=== PATIENT | female | born 1970 | race Hispanic/Latino ===

== ENCOUNTER 2016-12-15 09:19 | Outpatient (CLI) | payer MEDICARE ==
[2016-12-15 10:40] LABS: Blood Urea Nitrogen 25 mg/dL (7-17)
[2016-12-15] MEDS ORDERED: NACL ONE ×2 (10:44→12:32)
--- NOTE | 2016-12-15 14:55 | Cat Scan Report ---
CTA right lower extremity Recent trauma and known fracture for evaluation of vascular involvement. Following IV contrast administration transverse images are obtained from the lower third of the femur to the proximal two thirds of the tibia. Coronal and sagittal 2-D reformatted images included. There is a superiorly displaced avulsed bone fragment from the sub-plateau region of the posterior tibia. The joint is otherwise unremarkable and well aligned. There is a small suprapatellar effusion. There is a focal endosteal area of cortical thickening in the posterior distal femur just above the medial condyle. No other significant bone or soft tissue changes. The distal SFA and popliteal arteries are intact. There is a normal common peroneal and trifurcation region with 3 vessel runoff to the distal leg. Impressions: Avulsion fracture of posterior proximal tibia. No arterial vascular injury identified.
== END 2016-12-15 09:20 | disposition home or self-care (01) ==
LOC: CT 09:19
PROVIDERS: ATTEND Orthopaedic Surgery
DX: S82.101A Unspecified fracture of upper end of right tibia, initial encounter for closed fracture (principal); S83.104A Unspecified dislocation of right knee, initial encounter; X58.XXXA Exposure to other specified factors, initial encounter; Y93.89 Activity, other specified; Y92.89 Other specified places as the place of occurrence of the external cause; Y99.8 Other external cause status
CPT/HCPCS: 36415; 73706; 82565; 84520; Q9967

== ENCOUNTER 2017-07-08 16:36 | Inpatient (IN) | payer MEDICARE ==
--- NOTE | 2017-07-08 17:13 | Emergency Department Report ---
HPI - General Chief Complaint: Dyspnea/Respdistress Time Seen by Provider: 07/08/17 17:03 - HPI HPI: 47-year-old female who presents to the emergency department with complaint of a two-week history of shortness of breath. When this first began, the patient went to [facility] and was diagnosed with pneumonia. She was given a dose of Levaquin in the hospital, was not admitted, and then was sent home with a prescription of antibiotics which she has now finished. At the time, with the results now at bedside, she had a CT angiography of the chest that ruled out a pulmonary embolism and showed the ground glass opacities throughout the lung cantu. The patient has a past medical history of asthma, RA, and borderline diabetes. She went to see her printing supplies sales representative, Dr. Hoyos, today and had a 6 minute walking test and was found to have her oxygen go down into the 70s. She was given supplemental oxygen and improved. Therefore she has this exertional shortness of breath or worsening. It is also associated with a mixed dry and productive cough. One thing that is new is lower extremity swelling. She complains of this going on for the past week. No recent travel or sick contacts at home. She has a primary care physician up at [facility]. She denies any tobacco or illicit drug use or abuse. She has been using nebulized breathing treatments with only some transient relief. ED Past Medical Hx - Past Medical History Previous Medical History?: Yes Hx Diabetes: Yes (borderline) Hx Arthritis: Yes Hx Asthma: Yes (RA) - Surgical History Past Surgical History?: Yes Additional Surgical History: ACL and meniscus repair 05/21/2017. parital hysterectomy - Social History Smoking Status: Never Smoker Substance Use Type: None - Medications Home Medications: Home Medications Medication Instructions Recorded Confirmed Last Taken Type Acetaminophen [Tylenol Extra 500 mg PO DAILY 07/08/17 07/08/17 07/08/17 History Strength] Escitalopram Oxalate [Lexapro] 20 mg PO DAILY 07/08/17 07/08/17 Unknown History Ibuprofen [Motrin] 600 mg PO DAILY PRN 07/08/17 07/08/17 Unknown History Oxycodone HCl/Acetaminophen 1 each PO TID PRN 07/08/17 07/08/17 Unknown History [Percocet 10/325 mg] Pregabalin [Lyrica] 225 mg PO BID 07/08/17 07/08/17 07/08/17 History Trazodone HCl 100 mg PO QHS 07/08/17 07/08/17 07/07/17 History Zolpidem [Ambien] 5 mg PO QHS PRN 07/08/17 07/08/17 07/07/17 History ED Review of Systems ROS: Stated complaint: Short of breath Other details as noted in HPI Comment: All other systems reviewed and negative Constitutional: denies: chills, fever Eyes: denies: eye pain, eye discharge, vision change Respiratory: cough, shortness of breath, SOB with exertion, wheezing Cardiovascular: chest pain (chest pressure), edema Gastrointestinal: denies: abdominal pain, nausea, diarrhea Genitourinary: denies: urgency, dysuria, discharge Musculoskeletal: denies: back pain, joint swelling, arthralgia Skin: denies: rash, lesions Neurological: denies: headache, weakness, paresthesias Physical Exam - Physical Exam Vital Signs: Vital Signs 07/08/17 16:54 Temperature 98.4 F Pulse Rate 92 H Respiratory 20 Rate Blood Pressure 144/83 O2 Sat by Pulse 96 Oximetry Physical Exam: GENERAL: The patient is well-developed well-nourished. HENT: Normocephalic. Atraumatic. Patient has moist mucous membranes. EYES: Extraocular motions are intact. Pupils equal reactive to light bilaterally. NECK: Supple. Trachea is midline. CHEST/LUNGS: Coarse breath sounds. There is some tachypnea and accessory muscle use. There is no respiratory distress noted. HEART/CARDIOVASCULAR: Regular. There is no tachycardia. There is no murmur. ABDOMEN: Abdomen is soft, nontender. Patient has normal bowel sounds. Obese habitus. SKIN: 2+ pitting edema to the bilateral lower extremities from the feet to the knees. NEURO: The patient is awake, alert, and oriented. The patient is cooperative. The patient has no focal neurologic deficits. The patient has normal speech. MUSCULOSKELETAL: There is no tenderness or deformity. There is no evidence of acute injury. ED Course Vital Signs 07/08/17 16:54 Temperature 98.4 F Pulse Rate 92 H Respiratory 20 Rate Blood Pressure 144/83 O2 Sat by Pulse 96 Oximetry ED Medical Decision Making - Lab Data Result diagrams: 07/08/17 17:28 07/08/17 17:28 - EKG Data -: EKG Interpreted by Me EKG shows normal: sinus rhythm, axis, intervals, QRS complexes (LVH), ST-T waves Rate: normal - EKG Data Interpretation: LVH - Radiology Data Radiology results: image reviewed interpreted by me: Chest x-ray does not show any acute process. There are no pleural effusions, obvious pneumonia and there is no pneumothorax. - Medical Decision Making Patient presents with continuation of her shortness of breath has been going on for the past few weeks. She more recently has some lower extremity swelling and also complains of some chest tightness. EKG does not show any ST elevation NM, ischemia or dysrhythmia. Chest x-ray does not show any pneumonia, pleural effusions or any acute process. Labs thus far been unremarkable and do not show any etiology of her symptoms. She was given an aspirin to protect her heart, Lasix to start diuresis of the pitting edema and a breathing treatment. The patient walked around the emergency Department with a pulse ox attached and was seen going into the 80s without oxygen supplementation and she is not oxygen dependent at home. Since the patient is a failed outpatient treatment with some chest pressure, she will be admitted to the hospital for further evaluation and treatment and has been accepted for admission by the hospitalist , Dr. Wolfe. The patient has CT angiography report with her, from about 10 days ago, that shows that she does not have any pulmonary embolism and she was having most of the symptoms at that same time. - Differential Diagnosis CHF, Pneumonia, NM, venous stasis Critical Care Time: No Critical care attestation.: If time is entered above; I have spent that time in minutes in the direct care of this critically ill patient, excluding procedure time. ED Disposition Clinical Impression: Chest pressure, Pitting edema, Exertional dyspnea Dyspnea Qualifiers: Dyspnea type: shortness of breath Qualified Code(s): R06.02 - Shortness of breath; R06.00 - Dyspnea, unspecified; R06.01 - Orthopnea Disposition: OP ADMIT IP TO THIS HOSP Is pt being admited?: Yes Condition: Stable Referrals: PRIMARY CARE, [Primary Care Provider] - 3-5 Days Time of Disposition: 22:02
[2017-07-08 17:47] LABS: Basophils # (Auto) 0.1 K/mm3 (0.0-0.1); Basophils % (Auto) 0.6 % (0.0-1.8); Eosinophils # (Auto) 0.1 K/mm3 (0.0-0.4); Eosinophils % (Auto) 0.7 % (0.0-4.3); Hematocrit 36.3 % (30.3-42.9); Hemoglobin 11.8 gm/dl (10.1-14.3); Lymphocytes # (Auto) 3.4 K/mm3 (1.2-5.4); Lymphocytes % (Auto) 33.1 % (13.4-35.0); Mean Corpuscular HGB Conc 33 % (30-34); Mean Corpuscular Hemoglobin 26 pg (28-32); Mean Corpuscular Volume 81 fl (79-97); Monocytes # (Auto) 0.8 K/mm3 (0.0-0.8); Monocytes % (Auto) 7.8 % (0.0-7.3); Platelet Count 406 K/mm3 (140-440); Red Cell Distribution Width 16.6 % (13.2-15.2)
[2017-07-08 17:58] LABS: BUN/Creatinine Ratio 17; Blood Urea Nitrogen 12 mg/dL (7-17); Calcium 8.8 mg/dL (8.4-10.2); Hemolysis Index 1
[2017-07-08] MEDS ORDERED: DUONEB *Not for PRN Use IH ONE (18:02)
--- NOTE | 2017-07-08 18:46 | XRay Report ---
FINAL REPORT PROCEDURE: XR CHEST 1V AP TECHNIQUE: A portable AP chest radiograph was obtained at 07/08/2017 22:32 (T) . CPT 45089 HISTORY: Chest pain. COMPARISON: No prior studies are available for comparison. FINDINGS: Heart: Normal. Mediastinum/Vessels: Normal. Lungs/Pleural space: Mild left lower lobe linear opacity. Mild elevation of the right diaphragm. Bony thorax: Intrathecal leads, tip terminating at approximately T8. Life support devices: None. IMPRESSION: Mild left lower lobe linear opacity, likely scarring and/or atelectasis.
[2017-07-08] MEDS ORDERED: LASIX IV ONE (21:05)
[2017-07-08] MEDS ORDERED: BABY ASPIRIN PO ONE (21:27)
--- NOTE | 2017-07-08 22:14 | History and Physical Report ---
History of Present Illness Date of examination: 07/08/17 History of present illness: 47-year-old woman with a history of diabetes, rheumatoid arthritis, asthma comes emergency room but complained of worsening shortness of breath, dyspnea on exertion. She was hospitalized 2 weeks ago for pneumonia and completed a 10 day course of Levaquin and steroids on Thursday. She continued to have fever and was followed up and her senior analyst developer office. She was again seen today because of forced in symptoms and was found fit to go to the emergency room for evaluation. She had a CAT scan done 9 days ago it was negative for pulmonary emboli. She admits of worsening lower extremity edema and pleuritic chest pain Review Of Systems: Constitutional: no weight loss Ears, eyes, nose, mouth and throat: no nasal congestion, no nasal discharge, no sinus pressure, blurry vision, diplopia Neck: No neck pain or rigidity. Cardiovascular: no orthopnea, palpitations Respiratory: No cough Gastrointestinal: no abdominal pain, hematochezia Genitourinary : no dysuria, frequency , hematuria Musculoskeletal: no muscle ache Integumentary: no rash, no pruritis Neurological: no parathesias, focal weakness Endocrine: no cold or heat intolerance, no polyuria or polydipsia Hematologic/Lymphatic: no easy bruising, no easy bleeding, no gland swelling Allergic/Immunologic: no urticaria, no angioedema. PAST MEDICAL HISTORY: Diabetes, rheumatoid arthritis, asthma PAST SURGICAL HISTORY: Partial hysterectomy, neurostimulator, knee surgery SOCIAL HISTORY: Denies, tobacco, drugs FAMILY HISTORY: Hypertension Medications and Allergies Allergies Allergy/AdvReac Type Severity Reaction Status Date / Time doxycycline Allergy Hives Unverified 12/15/16 09:21 Home Medications Medication Instructions Recorded Confirmed Last Taken Type Acetaminophen [Tylenol Extra 500 mg PO DAILY 07/08/17 07/08/17 07/08/17 History Strength] Escitalopram Oxalate [Lexapro] 20 mg PO DAILY 07/08/17 07/08/17 Unknown History Ibuprofen [Motrin 200 MG tab] 600 mg PO DAILY PRN 07/08/17 07/08/17 Unknown History Oxycodone HCl/Acetaminophen 1 each PO TID PRN 07/08/17 07/08/17 Unknown History [Percocet 10/325 mg] Pregabalin [Lyrica] 225 mg PO BID 07/08/17 07/08/17 07/08/17 History Trazodone HCl 100 mg PO QHS 07/08/17 07/08/17 07/07/17 History Zolpidem [Ambien] 5 mg PO QHS PRN 07/08/17 07/08/17 07/07/17 History Azithromycin [Zithromax TAB] 500 mg PO QDAY #5 tablet 07/10/17 Unknown Rx predniSONE [Deltasone] 10 mg PO .TAPER #21 tab 07/10/17 Unknown Rx Exam - Physical Exam Narrative exam: Gen. appearance: Patient lying in bed, no apparent distress HEENT: Normocephalic, atraumatic, pupils equally round and reactive to light, extraocular movement intact, and no sclericterus,. No JVD or thyromegaly or nodule,neck supple, no carotid bruit ,mucous membranes moist, no exudate or erythema Heart: S1, S2, regular rate and rhythm Lungs: Coarse breath sounds, wheezing bilaterally, breathing comfortable Abdomen: Positive bowel sounds, nontender, nondistended, no organomegaly Extremity:+ edema, no cyanosis, clubbing Skin: No rash, nodules, warm, dry Neuro: Oriented 3, cranial nerves II-12 intact, speech is fluent, motor and sensory intact - Constitutional Vitals: Temp Pulse Resp BP Pulse Ox 98.4 F 86 18 123/76 99 07/08/17 16:54 07/08/17 19:51 07/08/17 19:51 07/08/17 19:31 07/08/17 19:48 Results - Labs CBC & Chem 7: 07/08/17 17:28 07/08/17 17:28 Labs: Abnormal lab results 07/08/17 07/08/17 07/08/17 Range/Units 17:28 17:28 19:45 MCH 26 L (28-32) pg RDW 16.6 H (13.2-15.2) % [place] % (Auto) 7.8 H (0.0-7.3) % POC ABG pH 7.492 H (7.35-7.45) Glucose 128 H (65-100) mg/dL - Imaging and Cardiology EKG: image reviewed Chest x-ray: image reviewed Assessment and Plan Assessment Asthma exacerbation and acute Lower extremity edema Diabetes type 2 Rheumatoid arthritis Plan Admit to medicine Start high-dose steroids, nebulization treatment, azithromycin Start IV Lasix, check cardiac enzymes, echo Check fingersticks initiate insulin signs scale DVT prophylaxis
[2017-07-09] MEDS ORDERED: DESYREL PO ONE (00:32)
[2017-07-09] MEDS: PERCOCET 5/325 PO PRN ×2 (00:48→21:06)
[2017-07-09] MEDS: AMBIEN PO PRN ×2 (00:49→21:06)
[2017-07-09] MEDS: DUONEB *Not for PRN Use IH SCH ×4 (03:30→20:57)
[2017-07-09] MEDS: TYLENOL PO SCH ×2 (06:56→13:32)
[2017-07-09] MEDS: LYRICA PO SCH ×2 (06:57→13:32)
[2017-07-09] MEDS: LASIX IV SCH (09:48)
[2017-07-09] MEDS: LEXAPRO PO SCH (09:48)
[2017-07-09] MEDS: LOVENOX SUB-Q SCH (09:49)
[2017-07-09] MEDS ORDERED: LYRICA PO SCH (10:00)
[2017-07-09 10:23] LABS: Creatine Kinase MB 1.1 ng/mL (0.0-4.0)
[2017-07-09] MEDS: ZITHROMAX 500 MG in NACL 0.9% 250ML 250 ML IV SCH (13:33)
--- NOTE | 2017-07-09 15:45 | Progress Note ---
<BARRY FOLEY - Last Filed: 07/09/17 15:54> Assessment and Plan Assessment and plan: 47-year-old woman with a history of diabetes, rheumatoid arthritis, asthma comes emergency room but complained of worsening shortness of breath, dyspnea on exertion. She was hospitalized 2 weeks ago for pneumonia and completed a 10 day course of Levaquin and steroids on Thursday. Asthma exacerbation and acute Continue high-dose steroids, nebulization treatment, azithromycin Lower extremity edema Improved, continue IV Lasix Diabetes type 2. ADA Diet, Accu cheks ACHS, SSI Rheumatoid arthritis DVT prophylaxis Lovenox History Interval history: Patient seen and examined. Was concerned as to why some medications were held. Discussed reason for holding medications while inpatient. Labs and nursing notes reviewed. Hospitalist Physical - Constitutional Vitals: Temp Pulse Resp BP Pulse Ox 97.2 F L 90 18 104/64 97 07/09/17 08:17 07/09/17 13:35 07/09/17 13:35 07/09/17 08:17 07/09/17 10:00 General appearance: Present: no acute distress, well-nourished, obese - EENT Eyes: Present: PERRL, EOM intact ENT: hearing intact, clear oral mucosa - Neck Neck: Present: supple, normal ROM - Respiratory Respiratory effort: normal Respiratory: bilateral: CTA - Cardiovascular Rhythm: regular Heart Sounds: Present: S1 & S2 - Extremities Extremities: no ischemia, No edema - Abdominal General gastrointestinal: soft, non-tender, non-distended - Integumentary Integumentary: Present: clear, warm, dry - Psychiatric Psychiatric: appropriate mood/affect, cooperative - Neurologic Neurologic: CNII-XII intact, moves all extremities - Allied Health Allied health notes reviewed: nursing Results - Labs CBC & Chem 7: 07/08/17 17:28 07/08/17 17:28 Labs: Laboratory Last Values WBC 10.3 K/mm3 (4.5-11.0) 07/08/17 17:28 RBC 4.50 M/mm3 (3.65-5.03) 07/08/17 17:28 Hgb 11.8 gm/dl (10.1-14.3) 07/08/17 17:28 Hct 36.3 % (30.3-42.9) 07/08/17 17:28 MCV 81 fl (79-97) 07/08/17 17:28 MCH 26 pg (28-32) L 07/08/17 17: MCHC 33 % (30-34) 07/08/17 17:28 RDW 16.6 % (13.2-15.2) H 07/08/17 17:28 Plt Count 406 K/mm3 (140-440) 07/08/17 17:28 Lymph % (Auto) 33.1 % (13.4-35.0) 07/08/17 17:28 [place] % (Auto) 7.8 % (0.0-7.3) H 07/08/17 17:28 Eos % (Auto) 0.7 % (0.0-4.3) 07/08/17 17: Baso % (Auto) 0.6 % (0.0-1.8) 07/08/17 17: Lymph # 3.4 K/mm3 (1.2-5.4) 07/08/17 17: [place] # 0.8 K/mm3 (0.0-0.8) 07/08/17 17:28 Eos # 0.1 K/mm3 (0.0-0.4) 07/08/17 17: Baso # 0.1 K/mm3 (0.0-0.1) 07/08/17 17:28 Seg Neutrophils % 57.8 % (40.0-70.0) 07/08/17 17: Seg Neutrophils # 5.9 K/mm3 (1.8-7.7) 07/08/17 17:28 POC ABG pH 7.492 (7.35-7.45) H 07/08/17 19:45 POC ABG pCO2 35.9 (35-45) 07/08/17 19:45 POC ABG pO2 102 (80-105) 07/08/17 19:45 POC ABG HCO3 27.5 07/08/17 19:45 POC ABG Total CO2 29 07/08/17 19:45 POC ABG O2 Sat 98 07/08/17 19:45 POC ABG Base Excess 4 07/08/17 19:45 FiO2 28 % 07/08/17 19:45 Sodium 141 mmol/L (137-145) 07/08/17 17:28 Potassium 3.9 mmol/L (3.6-5.0) 07/08/17 17:28 Chloride 99.8 mmol/L (98-107) 07/08/17 17:28 Carbon Dioxide 28 mmol/L (22-30) 07/08/17 17:28 Anion Gap 17 mmol/L 07/08/17 17:28 BUN 12 mg/dL (7-17) 07/08/17 17:28 Creatinine 0.7 mg/dL (0.7-1.2) 07/08/17 17:28 Estimated GFR > 60 ml/min 07/08/17 17:28 BUN/Creatinine Ratio 17 % 07/08/17 17:28 Glucose 128 mg/dL (65-100) H 07/08/17 17:28 Calcium 8.8 mg/dL (8.4-10.2) 07/08/17 17:28 Total Creatine Kinase 39 units/L (30-135) 07/09/17 09:06 CK-MB (CK-2) 1.1 ng/mL (0.0-4.0) 07/09/17 09:06 CK-MB (CK-2) Rel Index 2.8 (0-4) 07/09/17 09:06 Troponin T < 0.010 ng/mL (0.00-0.029) 07/09/17 09:06 NT-Pro-B Natriuret Pep 53.89 pg/mL (0-450) 07/08/17 17:28 TSH 1.340 mlU/mL (0.270-4.200) 07/08/17 17:28 <CHRIS MCALLISTER - Last Filed: 07/10/17 05:30> Assessment and Plan Assessment and plan: I saw and evaluated the patient. I agree with the findings and the plan of care as documented in the PA's~note, with the following corrections and additions. Morbid obesity- BM 44.3. 15 mins of weight loss counselling provided to the patient. she verbalized understanding ALTON- continue on BIPAP Hospitalist Physical - Constitutional Vitals: Temp Pulse Resp BP Pulse Ox 96.7 F L 69 20 127/76 98 07/10/17 04:51 07/10/17 04:52 07/10/17 04:51 07/10/17 04:51 07/10/17 04:52 Results - Labs CBC & Chem 7: 07/08/17 17:28 07/08/17 17:28 Labs: Laboratory Last Values WBC 10.3 K/mm3 (4.5-11.0) 07/08/17 17: RBC 4.50 M/mm3 (3.65-5.03) 07/08/17 17:28 Hgb 11.8 gm/dl (10.1-14.3) 07/08/17 17:28 Hct 36.3 % (30.3-42.9) 07/08/17 17: MCV 81 fl (79-97) 07/08/17 17: MCH 26 pg (28-32) L 07/08/17 17: MCHC 33 % (30-34) 07/08/17 17: RDW 16.6 % (13.2-15.2) H 07/08/17 17:28 Plt Count 406 K/mm3 (140-440) 07/08/17 17:28 Lymph % (Auto) 33.1 % (13.4-35.0) 07/08/17 17:28 [place] % (Auto) 7.8 % (0.0-7.3) H 07/08/17 17: Eos % (Auto) 0.7 % (0.0-4.3) 07/08/17 17: Baso % (Auto) 0.6 % (0.0-1.8) 07/08/17 17:28 Lymph # 3.4 K/mm3 (1.2-5.4) 07/08/17 17:28 [place] # 0.8 K/mm3 (0.0-0.8) 07/08/17 17:28 Eos # 0.1 K/mm3 (0.0-0.4) 07/08/17 17: Baso # 0.1 K/mm3 (0.0-0.1) 07/08/17 17: Seg Neutrophils % 57.8 % (40.0-70.0) 07/08/17 17: Seg Neutrophils # 5.9 K/mm3 (1.8-7.7) 07/08/17 17:28 POC ABG pH 7.492 (7.35-7.45) H 07/08/17 19:45 POC ABG pCO2 35.9 (35-45) 07/08/17 19:45 POC ABG pO2 102 (80-105) 07/08/17 19:45 POC ABG HCO3 27.5 07/08/17 19:45 POC ABG Total CO2 29 07/08/17 19:45 POC ABG O2 Sat 98 07/08/17 19:45 POC ABG Base Excess 4 07/08/17 19:45 FiO2 28 % 07/08/17 19:45 Sodium 141 mmol/L (137-145) 07/08/17 17:28 Potassium 3.9 mmol/L (3.6-5.0) 07/08/17 17:28 Chloride 99.8 mmol/L (98-107) 07/08/17 17:28 Carbon Dioxide 28 mmol/L (22-30) 07/08/17 17:28 Anion Gap 17 mmol/L 07/08/17 17:28 BUN 12 mg/dL (7-17) 07/08/17 17:28 Creatinine 0.7 mg/dL (0.7-1.2) 07/08/17 17:28 Estimated GFR > 60 ml/min 07/08/17 17:28 BUN/Creatinine Ratio 17 % 07/08/17 17:28 Glucose 128 mg/dL (65-100) H 07/08/17 17:28 Calcium 8.8 mg/dL (8.4-10.2) 07/08/17 17:28 Total Creatine Kinase 32 units/L (30-135) 07/09/17 14:53 CK-MB (CK-2) 1.1 ng/mL (0.0-4.0) 07/09/17 14:53 CK-MB (CK-2) Rel Index 3.4 (0-4) 07/09/17 14:53 Troponin T < 0.010 ng/mL (0.00-0.029) 07/09/17 14:53 NT-Pro-B Natriuret Pep 53.89 pg/mL (0-450) 07/08/17 17:28 TSH 1.340 mlU/mL (0.270-4.200) 07/08/17 17:28
[2017-07-09 16:02] LABS: Creatine Kinase MB 1.1 ng/mL (0.0-4.0)
[2017-07-09] MEDS ORDERED: DESYREL PO SCH (22:00)
[2017-07-10] MEDS: DUONEB *Not for PRN Use IH SCH ×3 (04:21→14:00)
[2017-07-10] MEDS: TYLENOL PO SCH ×2 (06:13→12:31)
[2017-07-10] MEDS: LYRICA PO SCH ×2 (06:14→12:31)
[2017-07-10] MEDS: LOVENOX SUB-Q SCH (10:10)
[2017-07-10] MEDS: LEXAPRO PO SCH (10:11)
[2017-07-10] MEDS: LASIX IV SCH (10:11)
[2017-07-10] MEDS: ZITHROMAX 500 MG in NACL 0.9% 250ML 250 ML IV SCH (10:14)
[2017-07-10 11:16] VITALS: BP 116/75
--- NOTE | 2017-07-10 15:04 | Discharge Summary ---
<BARRY FOLEY - Last Filed: 07/10/17 15:00> Providers - Providers Date of Admission: 07/08/17 22:12 Date of discharge: 07/10/17 Attending physician: CHRIS MCALLISTER MD Primary care physician: ASTROPHYSICS PROFESSOR Hospitalization Condition: Stable Pertinent studies: Chest x-ray revealed Mild left lower lobe linear opacity, likely scarring and/ or atelectasis. Echocardiogram showed ejection fraction of 55-60% with global left ventricular systolic function normal Hospital course: 47-year-old woman with a history of diabetes, rheumatoid arthritis, asthma comes emergency room but complained of worsening shortness of breath, dyspnea on exertion. She was hospitalized 2 weeks ago for pneumonia and completed a 10 day course of Levaquin and steroids on Thursday. -Patient was treated with high-dose steroids, nebulizer treatments and antibiotics for acute asthma exacerbation after which her symptoms improved. -Patient was found to have bilateral lower extremity edema and was treated with IV Lasix. Echocardiogram was essentially normal with ejection fraction of 55-60 %. -Patient was clinically stable for discharge home with appropriate prescriptions. Discharge diagnoses Acute asthma exacerbation Lower extremity edema Diabetes type 2 Rheumatoid arthritis DVT prophylaxis Disposition: DC- TO HOME OR SELFCARE Time spent for discharge: 34 minutes Core Measure Documentation - Palliative Care Palliative Care/ Comfort Measures: Not Applicable - Core Measures Any of the following diagnoses?: none Exam - Constitutional Vitals: Temp Pulse Resp BP Pulse Ox 97.9 F 133 H 22 116/75 91 07/10/17 08:11 07/10/17 14:42 07/10/17 12:31 07/10/17 10:51 07/10/17 14:42 General appearance: Present: no acute distress, well-nourished - EENT Eyes: Present: PERRL ENT: hearing intact, clear oral mucosa - Neck Neck: Present: supple, normal ROM - Respiratory Respiratory effort: normal Respiratory: bilateral: CTA - Cardiovascular Heart Sounds: Present: S1 & S2. Absent: rub, click - Extremities Extremities: pulses symmetrical, No edema Peripheral Pulses: within normal limits - Abdominal General gastrointestinal: Present: soft, non-tender, non-distended, normal bowel sounds - Integumentary Integumentary: Present: clear, warm, dry - Musculoskeletal Musculoskeletal: gait normal, strength equal bilaterally - Psychiatric Psychiatric: appropriate mood/affect, intact judgment & insight - Neurologic Neurologic: CNII-XII intact, moves all extremities Plan Activity: no restrictions, fall precautions Weight Bearing Status: Weight Bear as Tolerated Diet: low fat, low cholesterol, low salt Additional Instructions: Follow up with your manager real estate after discharge Follow up with: PARUL FREEMAN MD [Staff Physician] - 7 Days PRIMARY CARE, [Primary Care Provider] - 3-5 Days Prescriptions: Azithromycin [Zithromax TAB] 500 mg PO QDAY #5 tablet predniSONE [Deltasone] 10 mg PO .TAPER #21 tab <CHRIS MCALLISTER - Last Filed: 07/11/17 09:33> Providers - Providers Date of Admission: 07/08/17 22:12 Attending physician: CHRIS MCALLISTER MD Primary care physician: ASTROPHYSICS PROFESSOR Hospitalization Hospital course: I saw and evaluated the patient. I agree with the findings and the plan of care as documented in the PA's~note, with the following corrections and additions. Exam - Constitutional Vitals: Temp Pulse Resp BP Pulse Ox 97.9 F 133 H 20 116/75 91 07/10/17 08:11 07/10/17 14:42 07/10/17 14:12 07/10/17 10:51 07/10/17 14:42
[2017-07-11] MEDS ORDERED: ZITHROMAX PO SCH (10:00)
== END 2017-07-10 16:51 | disposition home or self-care (01) | DRG 202 ==
LOC: ED 16:36 → 4A 22:12
PROVIDERS: ADMIT Internal Medicine; ATTEND Internal Medicine
PROC: 4A033R1 Measurement of Arterial Saturation, Peripheral, Percutaneous Approach (ICD-10-PCS; principal; 2017-07-08)
PROC: 5A09457 Assistance with Respiratory Ventilation, 24-96 Consecutive Hours, Continuous Positive Airway Pressure (ICD-10-PCS; 2017-07-09)
DX: J45.901 Unspecified asthma with (acute) exacerbation (principal); Z68.41 Body mass index [BMI] 40.0-44.9, adult; M06.9 Rheumatoid arthritis, unspecified; E11.9 Type 2 diabetes mellitus without complications; R60.0 Localized edema; Z87.01 Personal history of pneumonia (recurrent); Z90.710 Acquired absence of both cervix and uterus; Z82.49 Family history of ischemic heart disease and other diseases of the circulatory system; Z88.8 Allergy status to other drugs, medicaments and biological substances; E66.01 Morbid (severe) obesity due to excess calories; Z71.3 Dietary counseling and surveillance
CPT/HCPCS: 36415; 71045; 80048; 82550; 82553; 82803; 83880; 84443; 84484; 85025; 93005; 93010; 93306; 94640; 94660; 94760; 96374; J0456; J1650; J1940; J2930; J7050

== ENCOUNTER 2018-04-29 11:19 | Outpatient (CLI) | payer MEDICARE ==
[2018-04-29] MEDS ORDERED: XYLOCAINE TOPICAL 4% TP ONE (11:24)
[2018-04-29] MEDS ORDERED: AD OINTMENT TP PRN (11:39)
== END 2018-04-29 11:20 | disposition home or self-care (01) ==
LOC: WOUND 11:19
PROVIDERS: ATTEND Surgery
DX: E11.622 Type 2 diabetes mellitus with other skin ulcer (principal); L97.222 Non-pressure chronic ulcer of left calf with fat layer exposed
CPT/HCPCS: 99215; A6250; G0463